=== PATIENT | male | born 1995 | race Caucasian/White ===

== ENCOUNTER 2018-11-13 15:46 | Emergency (ER) | payer OTHER ==
[2018-11-13 16:08] VITALS: BP 136/72; PULSE 72; TEMP 98.6; BMI 38.7
[2018-11-13] MEDS ORDERED: IBUPROFEN 400 MG TABLET (FP) PO ONE (16:09)
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
== END 2018-11-13 17:49 | disposition home or self-care (01) ==
LOC: JERFT 15:46
DX: S46.812A Strain of other muscles, fascia and tendons at shoulder and upper arm level, left arm, initial encounter (principal); V86.59XA Driver of other special all-terrain or other off-road motor vehicle injured in nontraffic accident, initial encounter; Y92.838 Other recreation area as the place of occurrence of the external cause; Y99.8 Other external cause status; Y93.44 Activity, trampolining
CPT/HCPCS: 73000-TC-LT-FY; 73030-TC-LT-FY; 99281-25